=== PATIENT | male | born 2000 | race Caucasian/White ===

== ENCOUNTER 2018-02-26 10:13 | Day surgery (SDC) | payer BC ==
[~2018-02-26 10:13] MED LIST: CEFAZOLIN 2 GM/50 ML (PMX) 50 ML IVPB; LACTATED RINGER'S 1,000 ML IV*
[2018-02-26] MEDS ORDERED: CEFAZOLIN 1 GM INJ (12:19)
[2018-02-26] MEDS ORDERED: PROPOFOL 20 ML (12:19)
[2018-02-26] MEDS ORDERED: LIDOCAINE 2% (SDV) 5 ML INJ (12:19)
[2018-02-26] MEDS ORDERED: HYDROmorphONE 1 MG/5 ML IV SYRINGE IV ×2 (13:30)
[2018-02-26] MEDS ORDERED: METOCLOPRAMIDE 10 MG INJ IV (13:30)
[2018-02-26] MEDS ORDERED: FENTAnyl 50 MCG/ML VIAL IV ×3 (13:30)
[2018-02-26] MEDS ORDERED: MEPERIDINE 25 MG INJ IV (13:30)
[2018-02-26] MEDS ORDERED: OXYCODONE/ACETAMINOPHEN (5/325) TAB PO (13:30)
[2018-02-26] MEDS ORDERED: MIDAZOLAM 1 MG/ML 2 ML INJ IV (13:30)
[2018-02-26] MEDS ORDERED: DIPHENHYDRAMINE 50 MG INJ IV (13:30)
[2018-02-26] MEDS: HYDROmorphONE 1 MG/5 ML IV SYRINGE IV (14:01)
[2018-02-26] MEDS: ONDANSETRON 4 MG INJ IV (14:02)
[2018-02-26] MEDS: OXYCODONE/ACETAMINOPHEN (5/325) TAB PO (14:29)
== END 2018-02-26 16:04 | disposition home or self-care (01) ==
LOC: SDS 10:13
DX: S83.281D Other tear of lateral meniscus, current injury, right knee, subsequent encounter (principal); X58.XXXD Exposure to other specified factors, subsequent encounter
CPT/HCPCS: 29881